=== PATIENT | female | born 1995 ===

== ENCOUNTER 2019-01-11 21:17 | Emergency (ER) | payer SELFPAY ==
[2019-01-11 21:30] VITALS: BP 122/71; PULSE 94; RESP 16; TEMP 98.3; O2SAT 98
--- NOTE | 2019-01-11 22:21 | ED PDOC ---
HPI: Back Time Seen by Provider: 01/11/19 21:37 Chief Complaint (Nursing): Back Pain Chief Complaint (Provider): Back Pain History Per: Patient History/Exam Limitations: no limitations Onset/Duration Of Symptoms: Days (x1) Current Symptoms Are (Timing): Still Present Additional Complaint(s): Patient is a 23 year old female with no past medical history, who presents to the emergency department complaining of left flank pain, onset was yesterday. She states she has been eating a lot of red meat and believes she a kidney stone. Patient states she has similar symptoms to her father who has been diagnosed with kidney stones in the past. She denies to have any nausea, vomiting and states that the pain is intermittent. Patient further denies to have any fever or urinary symptoms. PMD: No provider Past Medical History Reviewed: Historical Data, Nursing Documentation, Vital Signs Vital Signs: Last Vital Signs Temp 98.3 F 01/11/19 21:28 Pulse 94 H 01/11/19 21:28 Resp 16 01/11/19 21:28 BP 122/71 01/11/19 21:28 Pulse Ox 98 01/11/19 21:28 - Medical History PMH: No Chronic Diseases - Surgical History Surgical History: No Surg Hx - Family History Family History: States: Unknown Family Hx - Home Medications Home Medications: Ambulatory Orders Medication Instructions Recorded Docusate Sodium [Dulcolax Stool 100 mg PO DAILY #12 capsule 01/11/19 Softener] - Allergies Allergies/Adverse Reactions: Allergies Allergy/AdvReac Type Severity Reaction Status Date / Time No Known Allergies Allergy Verified 01/11/19 21:27 Review of Systems ROS Statement: Except As Marked, All Systems Reviewed And Found Negative Constitutional: Negative for: Fever Gastrointestinal: Negative for: Nausea, Vomiting Genitourinary Female: Negative for: Dysuria, Frequency, Incontinence, Hematuria Musculoskeletal: Positive for: Other (flank pain) Physical Exam - Reviewed Nursing Documentation Reviewed: Yes Vital Signs Reviewed: Yes - Physical Exam Appears: Positive for: Non-toxic, No Acute Distress Head Exam: Positive for: ATRAUMATIC, NORMOCEPHALIC Skin: Positive for: Normal Color, Warm, Dry Eye Exam: Positive for: Normal appearance, EOMI, PERRL ENT: Positive for: Normal ENT Inspection Cardiovascular/Chest: Positive for: Regular Rate, Rhythm. Negative for: Murmur Respiratory: Positive for: Normal Breath Sounds. Negative for: Respiratory Distress Gastrointestinal/Abdominal: Positive for: Normal Exam, Soft. Negative for: Tenderness Back: Positive for: Other (mild left flank tenderness). Negative for: L CVA Tenderness, R CVA Tenderness Extremity: Positive for: Normal ROM. Negative for: Pedal Edema, Deformity Neurological/Psych: Positive for: Alert, Oriented - ECG O2 Sat by Pulse Oximetry: 98 (RA) Pulse Ox Interpretation: Normal Medical Decision Making Medical Decision Making: Time: 2148 Impression: Likely not renal calculi given comfortable appearance. Plan: Will check urine, blood and xray --ED urine --Motrin 600 mg PO --Abdominal xray 1 view --Urinalysis 2219 --No blood in urine and no calculi on abd xray --Likely gas/constipation, related to diet, advised to improve diet, stool softeners as needed --Well appearing, stable for discharge Scribe Attestation: Documented by [facility], acting as a scribe Sandeep Kim MD. Provider Scribe Attestation: All medical record entries made by the Scribe were at my direction and personally dictated by me. I have reviewed the chart and agree that the record accurately reflects my personal performance of the history, physical exam, medical decision making, and the department course for this patient. I have also personally directed, reviewed, and agree with the discharge instructions and disposition. Disposition - Clinical Impression Clinical Impression: Abdominal pain - Disposition Referrals: [facility] [Outside] Disposition: Routine/Home Disposition Time: 22:20 Condition: IMPROVED Prescriptions: Docusate Sodium [Dulcolax Stool Softener] 100 mg PO DAILY #12 capsule Instructions: Acute Abdomen (Belly Pain) Forms: [employer] ([place])
[2019-01-11 22:44] LABS: SQUAMOUS EPITHIAL 15 /hpf (0-5); URINE BACTERIA RARE (<OCC); URINE BILIRUBIN NEGATIVE (NEGATIVE); URINE BLOOD NEGATIVE (NEGATIVE); URINE CLARITY CLOUDY (Clear); URINE COLOR YELLOW (YELLOW); URINE GLUCOSE (UA) NEG (NEGATIVE); URINE LEUKOCYTE ESTERASE NEG Leu/uL (Negative); URINE PROTEIN NEGATIVE (NEGATIVE)
--- NOTE | 2019-01-12 10:57 | RAD ---
Date of service: 01/11/2019 HISTORY: L sided abd pain COMPARISON: None available. TECHNIQUE: 1 view obtained. FINDINGS: BOWEL: Moderate constipation. Nonobstructive bowel gas pattern. BONES: No acute osseous abnormality is detected. OTHER FINDINGS: Small left pelvic calcification, consistent with phlebolith. IMPRESSION: Moderate constipation.
== END 2019-01-11 22:50 | disposition home or self-care (01) ==
LOC: H.ER 21:17
DX: R10.9 Unspecified abdominal pain (principal)